=== PATIENT | male | born 1985 | race Caucasian/White ===

== ENCOUNTER 2018-01-16 14:49 | Emergency (ER) | payer MEDICAID ==
[~2018-01-16] VITALS: Ht 177.8 cm; Wt 65.0 kg
[2018-01-16] MEDS ORDERED: GABA-531 PO (15:08)
[2018-01-16] MEDS ORDERED: INSLAN SQ (15:08)
[2018-01-16] MEDS ORDERED: BLOOD PRESSURE PO (15:08)
[2018-01-16] MEDS ORDERED: SERT50TA12 PO (15:08)
[2018-01-16] MEDS ORDERED: INSU100V SQ (15:08)
[2018-01-16] MEDS ORDERED: SODIUM CHLORIDE 0.9% 1,000 ML IV ONE (16:30)
[2018-01-16] MEDS ORDERED: INSULIN REGULAR, HUMAN 100 UNITS/ML IVP ONE (17:15)
[2018-01-16] MEDS ORDERED: GABAPENTIN 300 MG CAPSULE PO ONE (17:15)
[2018-01-16 18:38] LABS: GLUCOSE,POINT OF CARE 69 MG/DL (70-110)
[2018-01-16 19:02] VITALS: BP 134/104
[2018-01-16 19:19] LABS: GLUCOSE,POINT OF CARE 131 MG/DL (70-110)
== END 2018-01-16 19:26 | disposition home or self-care (01) ==
LOC: EMS 14:55
DX: E11.65 Type 2 diabetes mellitus with hyperglycemia (principal); M54.9 Dorsalgia, unspecified; G89.29 Other chronic pain; E11.40 Type 2 diabetes mellitus with diabetic neuropathy, unspecified; F10.20 Alcohol dependence, uncomplicated; I10 Essential (primary) hypertension; F12.90 Cannabis use, unspecified, uncomplicated; Z76.0 Encounter for issue of repeat prescription; Z79.4 Long term (current) use of insulin
CPT/HCPCS: 82962; 96360; 96361; 96374; 99285; J1815; J7030